=== PATIENT | female | born 1960 | race Caucasian/White ===

== ENCOUNTER 2022-08-02 10:12 | Outpatient (RCR) | payer MEDICAID, OTHER | END 2022-08-02 17:00 | disposition home or self-care (01) | PROVIDERS: ATTEND Family Medicine | DX: Z02.71 Encounter for disability determination (principal); M47.816 Spondylosis without myelopathy or radiculopathy, lumbar region; M19.09 Primary osteoarthritis, other specified site; E11.9 Type 2 diabetes mellitus without complications; H54.7 Unspecified visual loss; I10 Essential (primary) hypertension; E78.00 Pure hypercholesterolemia, unspecified; D64.9 Anemia, unspecified ==

== ENCOUNTER → 2022-08-02 | Outpatient (CLI) | payer OTHER ==
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
== END ==
LOC: RAD 11:27
PROVIDERS: ATTEND Family Medicine
DX: M25.511 Pain in right shoulder (principal); M25.512 Pain in left shoulder; M51.37 Other intervertebral disc degeneration, lumbosacral region; M47.816 Spondylosis without myelopathy or radiculopathy, lumbar region
CPT/HCPCS: 72100